=== PATIENT | male | born 1965 | race Two or more races ===

== ENCOUNTER → 2025-01-23 | Outpatient (CLI) | payer BC, SELFPAY ==
--- NOTE | 2025-01-23 08:29 | XR_ITS ---
Examination: Right elbow 3 views Technique: Elbow AP, oblique, lateral 3 views Exam date and time: January 23, 2025 0912 hours INDICATIONS: Left elbow pain beginning one week ago. FINDINGS: Mild elbow osteoarthritis. No fracture or dislocation. No elbow effusion IMPRESSION: Mild elbow osteoarthritis.
== END | disposition home or self-care (01) ==
LOC: CDIM 08:07
PROVIDERS: PCP Internal Medicine; Referring Provider Internal Medicine; Visit Provider Internal Medicine
DX: M19.022 Primary osteoarthritis, left elbow (principal)
CPT/HCPCS: 73080